=== PATIENT | female | born 1960 | race Caucasian/White ===

== ENCOUNTER 2025-01-09 08:34 | Outpatient (AMB) | payer OTHER, SELFPAY ==
--- NOTE | 2025-01-09 08:31 | MHC.PC.OV ---
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 Accompanied by: Self / Same As Patient Allergies meperidine (From Demerol) Allergy (Mild, Verified 01/09/25 08:39) Vomiting Tobacco use date assessed: 01/09/25 Fall risk assessment: 1 Fall in past year Last assessed Fall Risk: 01/09/25 Dental Screening Dental Screen Date: 01/09/25 Did you have a dental visit in the last 12 months?: Yes Did you have a dental problem in the last 6 months where you did not have access to dental care?: No Was dental information given to patient?: No HPI HPI Comments History of Present Illness Details 64-year-old female with history of hypertension, hypothyroidism with history of Graves disease, venous insufficiency, history of GERD, anxiety/stress disorder, and class 2 obesity with BMI 37 presents to the office today for management of chronic conditions and to establish care. Hypertension-initial blood pressure 150/80, repeat 138/78. Compliant with atenolol and lisinopril Hypothyroidism-s/p ablation with history of Graves disease. Compliant with levothyroxine GERD-reports while managed with lifestyle Anxiety/stress disorder-significant life stressors dating back to 2011. In 2011, she lost her 18-year-old son to suicide. She then lost her in a motorcycle accident. She does still have 2 children with whom she has a good relationship. She states her stepdad then suffered a massive heart attack in 2019. He as well as her mother carry diagnosis of Alzheimer's disease. Had been taking care of both of them for 9 years until their deaths. She also reports ongoing stressors related to a state. 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 She is currently on vacation is working on setting boundaries and doing things for herself. Class 2 obesity-BMI 37.9. Reports given all of her historical stressors, she has found difficulty with healthy eating habits. States she does use food as a coping mechanism. Did previously use weight watchers with good effect. She has started walking 2 miles per day with her daughter which she has been enjoying. She has goals to resume weight watchers and is planning on making a diet plan today. life turmoil since 2011 lost son august he was 18. killed in [place] [employer] [place]. still has 2 kids. step dad heart attack 2018. taking care of elderly parents 2014- step daughter jun 2022, then mom jun 2023 (dementia). [employer] about estate ongoing Carpal tunnel syndrome-bilateral. Wears wrist splints but feels symptoms are worsening with numbness tingling occurring during the day as well as the night making it hard to maneuver objects. Health maintenance: Will obtain records for last mammogram, DEXA scan, colonoscopy ROS: General: No fevers, malaise, unintentional weight loss Cardiovascular: No chest pain, palpitations, or leg edema Respiratory: No shortness of breath, wheezing, cough MSK: See HPI Neuro: See HPI Skin: No rashes or lesions Constitutional - Awake and Alert, No apparent distress Eyes - PERRLA, EOMI Cardiovascular - S1S2, RRR, No edema Respiratory - Normal lung expansion, Normal respiratory effort, No respiratory distress, CTA bilaterally Extremities - no calf tenderness bilaterally, no swelling Musculoskeletal - Normal inspection, normal ROM Skin - Warm/Dry Neurological - Alert & oriented x3 Psychological - Appropriate affect [facility] Medical History (Updated 01/09/25 @ 09:25 by DIEGO Castro) Venous insufficiency Anxiety GERD (gastroesophageal reflux disease) Obesity Bilateral carpal tunnel syndrome Graves disease Family History (Updated 01/09/25 @ 09:30 by DIEGO Castro) Mother Alzheimer dementia Son Suicide Social History (System 12/02/24 @ 14:12 by Guerline Cheung) Housing: House Patient Tobacco Use Status: Never used Tobacco e-Cigarette/Vaping Use: Never Used Current occupational status: employed Cognitive needs: No Hearing needs: No Vision needs: Yes (distance) Questionnaire PHQ-9 Over the last 2 weeks, how often have you been bothered by any of the following problems? 1. Little interest or pleasure in doing things: not at all 2. Feeling down, depressed, or hopeless: not at all 3. Trouble falling or staying asleep, or sleeping too much: not at all 4. Feeling tired or having little energy: not at all 5. Poor appetite or overeating: several days 6. Feeling bad about yourself - or that you are a failure or have let yourself or your family down: not at all 7. Trouble concentrating on things, such as reading the newspaper or watching television: not at all 8. Moving or speaking so slowly that other people could have noticed. Or the opposite - being so fidgety or restless that you have been moving around a lot more than usual: not at all 9. Thoughts that you would be better off or of hurting yourself in some way: not at all Total score: 1 Source: Developed by Drs. Amado Pennington, Gogo Gilbert, Andres Masterson and colleagues, with an educational marianela from [employer]. Thrive Questionnaire Date Thrive assessed: 01/09/25 I am a: Patient What is your living situation today?: I have a steady place to live Within the past 12 months, did the food you bought not last and you didn't have the money to get more?: Never true Within the past 12 months, did you worry whether your food would run out before you got money to buy more?: Never true Do you have trouble paying for medicines?: No Do you have trouble getting transportation to medical appointments?: No Do you have trouble paying your heating and electricity bill?: No Do you have trouble taking care of your child, family member or friend?: No Do you have trouble with day-to-day activities such as bathing, preparing meals, shopping, managing finances, etc.?: No Are you currently unemployed and looking for a job?: No Are you interested in more education?: No Please select the resources that you would like help with: None THRIVE Score: 0 BRIAN-7 AMB Questionnaire BRIAN-7 Date BRIAN - 7 assessed: 01/09/25 Feeling nervous, anxious, or on edge: 0 = Not at all Not being able to stop or control worryin = Not at all Worrying too much about different things: 1 = Several days Trouble relaxin = Several days Being so restless that it is hard to sit still: 0 = Not at all Becoming easily annoyed or irritable: 1 = Several days Feeling afraid as if something awful might happen: 0 = Not at all Total BRIAN-7 score (0-4 normal; 5-9 mild; 10-14 moderate; 15-21 severe): 3 Source: Developed by Drs. Amado Pennington, Gogo Gilbert, Andres Masterson and colleagues, with an educational marianela from [employer]. Physical exam (Primary Care) Vital Signs: Last Vital Signs Temp 97.5 F 01/09/25 08:40 Pulse 71 01/09/25 08:40 Resp 16 01/09/25 08:40 BP 138/78 01/09/25 09:20 Pulse Ox 98 01/09/25 08:40 Oxygen Delivery Method Room Air 01/09/25 08:40 BMI result Body Mass Index 37.9 Tobacco/Smoking Status: Tobacco use Status Tobacco use date assessed 01/09/25 01/09/25 08:42 Patient Tobacco Use Status Never used Tobacco 01/09/25 08:42 e-Cigarette/Vaping Use Never Used 01/09/25 08:42 PHQ-9: PHQ-9 Score PHQ-9: Total score 1 01/09/25 08:52 Thrive Assessment: Date of Thrive Assessment Date Thrive assessed 01/09/25 01/09/25 08:44 Coding Level of Care Code New Pt Level 4 (47958) Complex EM visit Add On G2211 Diagnoses GERD (gastroesophageal reflux disease) K21.9 Anxiety F41.9 Graves disease E05.00 Bilateral carpal tunnel syndrome G56.03 Obesity E66.9 Assessment & Plan Assessment & Plan (1) GERD (gastroesophageal reflux disease): Code(s): K21.9 - Gastro-esophageal reflux disease without esophagitis Category: Medical Plan: Stable.. Continue avoidance of known triggers (2) Anxiety: Code(s): F41.9 - Anxiety disorder, unspecified Category: Medical Plan: Stable overall. Would recommend establishment of boundaries and positive coping skills which were discussed in the office (3) Graves disease: Code(s): E05.00 - Thyrotoxicosis with diffuse goiter without thyrotoxic crisis or storm Category: Medical Plan: S/p radiation. Continue levothyroxine. (4) Bilateral carpal tunnel syndrome: Code(s): G56.03 - Carpal tunnel syndrome, bilateral upper limbs Category: Medical Plan: Continue wrist splints. Referred to Orthopedics (5) Obesity: Code(s): E66.9 - Obesity, unspecified Category: Medical Plan: Continue with lifestyle modification with diet high in protein, fruits, vegetables and low in refined sugars, simple carbohydrates, and highly processed foods. Recommend increase weight-bearing exercise. Continue with weight loss efforts as discussed in the office Plan Follow-up in the office in 6 months. Labs could be completed following visit. Referred for DEXA scan and mammogram. Refer to orthopedics Orders: Orders Complete Blood Count Auto Diff 6 Months E05.00 - Thyrotoxicosis with diffuse goiter without thyrotoxic crisis or storm, E66.9 - Obesity, unspecified, G56.03 - Carpal tunnel syndrome, bilateral upper limbs Lipid Panel 6 Months E05.00 - Thyrotoxicosis with diffuse goiter without thyrotoxic crisis or storm, E66.9 - Obesity, unspecified, G56.03 - Carpal tunnel syndrome, bilateral upper limbs MM tomosynthesis screening BI Today M85.80 - Other specified disorders of bone density and structure, unspecified site, Z12.31 - Encounter for screening mammogram for malignant neoplasm of breast Basic Metabolic Panel 6 Months E05.00 - Thyrotoxicosis with diffuse goiter without thyrotoxic crisis or storm, E66.9 - Obesity, unspecified, G56.03 - Carpal tunnel syndrome, bilateral upper limbs Hemoglobin A1c 6 Months E05.00 - Thyrotoxicosis with diffuse goiter without thyrotoxic crisis or storm, E66.9 - Obesity, unspecified, G56.03 - Carpal tunnel syndrome, bilateral upper limbs TSH reflex Free T4 6 Months E05.00 - Thyrotoxicosis with diffuse goiter without thyrotoxic crisis or storm, E66.9 - Obesity, unspecified, G56.03 - Carpal tunnel syndrome, bilateral upper limbs Vitamin D 25-OH Total 6 Months E05.00 - Thyrotoxicosis with diffuse goiter without thyrotoxic crisis or storm, E66.9 - Obesity, unspecified, G56.03 - Carpal tunnel syndrome, bilateral upper limbs XR DEXA axial skeleton Today M85.80 - Other specified disorders of bone density and structure, unspecified site, Z12.31 - Encounter for screening mammogram for malignant neoplasm of breast Referrals Orthopedics Referral G56.03 - Carpal tunnel syndrome, bilateral upper limbs
[2025-01-09 08:40] VITALS: BP 150/80; PULSE 71; RESP 16; TEMP 36.4; O2SAT 98; BMI 37.9
[2025-01-09 09:20] VITALS: BP 138/78
== END 2025-01-09 09:11 | disposition home or self-care (01) ==
LOC: HO.HMCHD 08:34
PROVIDERS: Visit Provider Physician Assistant
DX: K21.9 Gastro-esophageal reflux disease without esophagitis (principal); F41.9 Anxiety disorder, unspecified; E05.00 Thyrotoxicosis with diffuse goiter without thyrotoxic crisis or storm; G56.03 Carpal tunnel syndrome, bilateral upper limbs; E66.9 Obesity, unspecified